=== PATIENT | male | born 1965 | race Caucasian/White ===

== ENCOUNTER 2016-09-04 23:22 | Inpatient (IN) | payer OTHER ==
[~2016-09-04] VITALS: Ht 180.3 cm; Wt 108.0 kg
--- NOTE | ~2016-09-04 | EKG ---
[place] [address] [facility] [place] [address] ELECTROCARDIOGRAM REPORT Name: MILLIE MACIEL Room #: 206-P ADM IN M.R.#: [id number] Admission: 09/05/16 Attend Phys: Demi Sandy Discharge: Date of : 65 Report #: [id number] THIS REPORT FOR: //name// [facility] ED Test Date: 2016-09-05 Test Time: 00:16:21 Pat Name: MILLIE MACIEL Department: Room: 206 Gender: M Diploma Dental Assistant: AJIT : 1965 Requested By: Andrew Will Order Number: [id number] MD: Harrison Babb Measurements Intervals [place] Rate: 94 P: 67 [place]: 165 QRS: 7 QRSD: 109 T: 154 QT: 423 QTc: 530 Interpretive Statements Sinus rhythm Left atrial enlargement LVH with secondary repolarization abnormality Anterior ST elevation, probably due to LVH No previous ECG available for comparison Electronically Signed On 09-05-2016 8:02:30 CDT by Harrison Babb [email or web address] <ELECTRONICALLY SIGNED> By: Harrison Babb MD, [facility] 09/05/16 0802 Harrison Babb MD, [facility] /EPI
--- NOTE | ~2016-09-04 | H ---
[place] [address] HISTORY AND PHYSICAL Name: MILLIE MACIEL Room #: 206-P [facility] IN M.R.#: [id number] Admission: 09/05/16 Attend Phys: Demi Sandy Discharge: 09/07/16 Date of : 65 Report #: [id number] THIS REPORT FOR: //name// CC: ARPIT Sandy DATE OF SERVICE: 09/05/2016 ATTENDING PHYSICIAN: Dr. Jamshid Pulido. PRIMARY CARE PHYSICIAN: Dr. Arpit Nguyen. CHIEF COMPLAINT: Shortness of air and lower extremity edema. HISTORY OF PRESENT ILLNESS: The patient is a 51-year-old male who came in to our ER tonight with the above complaints. Apparently, he is a dialysis patient and he has been noncompliant with dialysis since he started dialysis last October 2015. He has multiple reasons why he has been missing dialysis. It sounds like, he has been to multiple dialysis centers when he was first set up. He said he was at [facility], but that he left because the dialysis there was making his blood pressure too high. He has also been getting dialysis at [facility]. It sounds like, he really does not have a current place to receive dialysis and so he does go into different ERs when he feels that he needs dialysis. He says he received dialysis about 6 or 7 times in August. His last dialysis was 1 week ago at [place]. He still has his temporary dialysis catheter in, which was placed in July 2015. He does have left arm fistula, which he says they used once and it worked well, but then the last time he thought they had some problems. The patient really does not seem to understand the concept of dialysis. He does have a history of hypertension and he has been off his medications again for a year. He says the only medication that was ever able to help his high blood pressure was his Xanax, which is really the only medication he continues to take. He does have chronic pain mostly in his back for which he has multiple allergies and says the only thing that helps his back pain is fentanyl and Dilaudid. He actually just saw a pain management doctor today and was given hydrocodone. When asked why he was given hydrocodone if he is allergic to it, he says, he is not really allergic to it; it just does not work for him anymore. The patient was actually found in the room with a bottle of his hydrocodone trying to take a pill of his own med. He is falling asleep sitting at the side of his bed, but he is being noncompliant with lying down and using his sher alarm. The patient is denying any chest pain. His main concern is that he has been having increasing swelling in his legs, which he says is chronic. PAST MEDICAL HISTORY: End-stage renal disease, hypertension, panic disorder, chronic back pain and diabetes, which he says is diet controlled. 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 ALLERGIES: The patient said he is allergic to TYLENOL, HYDROCODONE, OXYCODONE and TRAMADOL, all of which he says are not really allergies, they just do not work for him. He is allergic to PENICILLIN with unknown reaction. HOME MEDICATIONS: DuoNeb q.i.d., Flomax 0.4 mg daily, Flexeril 10 mg p.o. t.i.d. p.r.n., amlodipine 10 mg p.o. daily, but he really has not taken this in about a year, Xanax 1 mg p.o. t.i.d. p.r.n., Zofran p.r.n., Proscar 5 mg p.o. daily. SOCIAL HISTORY: The patient lives with 2 roommates. He is on disability. Denies any alcohol or drug use. He does smoke 1 pack of cigarettes per day, has been smoking since the age of 30. REVIEW OF SYSTEMS: Both his parents are . His mother of colon cancer and his father of renal cancer. His sister is alive and healthy. REVIEW OF SYSTEMS: Twelve point review of systems was reviewed with the patient, otherwise negative unless stated in the HPI. PHYSICAL EXAMINATION: GENERAL: The patient is an alert disheveled appearing male, in no acute distress. VITAL SIGNS: Temperature is 36.7, heart rate 92, respirations 20, blood pressure is 224/108, and oxygen is 95% on room air. HEENT: PERRLA. Sclerae is nonicteric. Oral mucosa is pink and moist. NECK: Supple, no JVD noted. CARDIOVASCULAR: Normal S1, S2. No murmurs, rubs or gallops. RESPIRATORY: Breath sounds are clear bilaterally. No wheezing or rhonchi. Breathing is nonlabored. ABDOMEN: Soft, nontender, nondistended with positive bowel sounds. VASCULAR: He does have 3+ bilateral lower extremity edema. Pedal pulses are 2+. NEUROLOGIC: The patient is alert and oriented x 3, but overall, he is an extremely poor historian with probable low IQ. He will follow commands and is moving all extremities equally. No focal neuro deficits noted. LABORATORY DATA AND DIAGNOSTICS: WBC is 7.7, hemoglobin 9.9, platelets 173. Sodium 137, potassium 3.4, BUN 74, creatinine 5.7, glucose 130, phosphorus is 6.0. LFTs are within normal limits except for magnesium 2.4. Chest x-ray shows right IJ dialysis catheter in place with generalized cardiomegaly with moderate to right-sided pleural effusion and a right middle and lower lobe atelectasis and pneumonia. There is diffuse vascular congestion and pulmonary edema was [address] [place] [address] HISTORY AND PHYSICAL Name: MILLIE MACIEL [place] Room #: 206-P [facility] IN ..#: [id number] Admission: 09/05/16 Attend Phys: Demi Sandy Discharge: 09/07/16 Date of : 65 Report #: [id number]. ASSESSMENT AND PLAN: 1. Hypertensive urgency: Likely, due to noncompliance with hemodialysis. We will add hydralazine p.r.n. and consult renal due to the need for dialysis for fluid removal. 2. End-stage renal disease, on hemodialysis: The patient has been noncompliant with hemodialysis. He truly needs to get re-established with a specific dialysis center and reserve a new chair time and then keep going to the same clinic instead of jumping around among multiple hospitals and clinics. We will consult renal and case management. 3. Panic disorder and anxiety: Xanax is added p.r.n. 4. Chronic back pain: The patient does request pain medication if possible, although he did report multiple drug allergies. We will hold off on any further pain medication at this time. 5. Possible diabetes: The patient states this is diet controlled. We will add sliding scale insulin and check blood sugars before meals and at bedtime. 6. Anemia: This is likely anemia of chronic disease, no signs of bleeding. 7. Deep venous thrombosis prophylaxis, place sequential compression devices. We will continue to follow the patient closely throughout the hospitalization and make changes based on clinical status. <ELECTRONICALLY SIGNED> By: LAURA Chatman 09/10/16 0604 0525 0815 LAURA Chatman /nt
--- NOTE | ~2016-09-04 | HC ---
[facility] [place] [address] CONSULTATION Name: MILLIE MACIEL Room #: 206-P ADM IN M.R.#: [id number] Admission: 09/05/16 Attend Phys: Demi Sandy Discharge: Date of : 65 Report #: [id number] THIS REPORT FOR: //name// CC: ARPIT Sandy DATE OF SERVICE: 09/05/2016 ATTENDING PHYSICIAN: Dr. Pulido. REASON FOR CONSULTATION: Chronic kidney disease. HISTORY OF PRESENT ILLNESS: This poorly compliant 51-year-old patient is a poor historian as well. He is rather somnolent and I believe that is likely due to some narcotics that he likely has received here at the hospital. I aroused him intermittently and gave me some history. He did get some fentanyl and some sedatives in the emergency room. The patient is a poorly compliant dialysis patient who is very slightly short-winded and really not gave me a good reason for his admission. I believe he came to the emergency room when he thought he needed dialysis. He has not dialyzed in at least several weeks and is unclear where his regular dialysis unit is, although may be in [place]. He does live in [place]. Apparently, he has been denied for dialysis status at that clinic. PAST MEDICAL HISTORY: He has end-stage renal disease. He apparently has diabetes, but not severe and he has had some difficult hypertension. He is a chronic pain patient and he apparently had a remote accident some sort and has chronic neck and back pain by his account. FAMILY HISTORY: Negative for renal disease. SOCIAL HISTORY: Denies alcohol or drugs. Apparently, he does smoke cigarettes. ALLERGIES: Reportedly to VICODIN, PERCOCET, PENICILLIN AND TRAMADOL. REVIEW OF SYSTEMS: GENERAL: Difficult to keep the patient awake. EYES: He says his vision is good. ENT: Hearing okay. Swallowing okay. Denies mouth ulcers. ENDOCRINE: He has got the diabetes. RESPIRATORY: Denies shortness of breath. CARDIAC: Denies chest pain, angina, history of arrhythmias, does have hypertension. GASTROINTESTINAL: Denies nausea, vomiting, diarrhea or bloody stools. GENITOURINARY: He says he has got a reasonably good urinary stream. [facility] [address] [place] [address] CONSULTATION Name: MILLIE MACIEL Room #: 206-P [facility] IN .R.#: [id number] Admission: 09/05/16 Attend Phys: Demi Sandy Discharge: Date of : 65 Report #: [id number] NEUROLOGIC: Denies seizure, syncope or stroke. PHYSICAL EXAMINATION: GENERAL: Somewhat swollen, somnolent patient difficult to arouse. SKIN: Unremarkable. SKELETAL: Well developed, well nourished. HEENT: Extraocular movements are full. No scleral icterus. Hearing and vision intact. Mucous membranes are moist. NECK: Supple. There is a tunneled dialysis catheter in his right chest. CHEST: Shows diminished breath sounds at the bases. HEART: Regular. ABDOMEN: Soft and nontender. EXTREMITIES: Show generalized 2+ edema. NEUROLOGIC: Grossly intact. LABORATORY DATA: Creatinine 5.7, BUN 74, potassium 3.4, phosphorus is 6, calcium 7.3, albumin 3. ASSESSMENT AND PLAN: 1. Chronic kidney disease stage 5. Apparently, he has been intermittently on dialysis. He is getting by fairly well without, although he is rather fluid overload and hypertensive, dialysis will be ordered with ultrafiltration. We will start with gentle treatment today and tomorrow, reinitiate antihypertensives and try to sort through his social issues. 2. Chronic pain syndrome. 3. History of diabetes. <ELECTRONICALLY SIGNED> By: Haris French MD 09/06/16 1115 0811 58 Haris French MD /nt
[~2016-09-04 23:22] MED LIST: ADVAIR 250-501 EACH INH; BACTRIM DS TAB1 EACH PO; BUSPIRONE HCL10 MG PO; CARDIZEM60 MG PO; CLONIDINE HCL0.3 M3 PO; DUONEB 2.5-0.5 M3 ML INH; GLUCOPHAGE XR750 MG PO; HYDRALAZINE 2525 MG PO; HYDROCODON-ACE1 EAC8 PO; HYDROCODONE-APA1 TA1 PO; LABETALOL 100100 MG PO; LISINOPRIL20 MG PO; NITROFURANTOIN100 MG PO; NOHOMEMEDICATIONS; PERCOCET PO; PHENERGAN 25 MG25 M1 PO; XANAX 0.5 MG0.5 MG PO; XANAX1 MG PO; ZOFRAN ODT4 MG PO
[2016-09-04 23:46] VITALS: BP 224/128
[2016-09-05] VITALS (9 sets, daily range): BP systolic 179–240; BP diastolic 96–135
[2016-09-05 00:13] LABS: ABSOLUTE NEUTROPHILS 5.4 thou/uL (1.4-8.2); BASOPHILS 1.1 % (0.0-2.0); EOSINOPHILS 2.7 % (0.0-3.0); HEMATOCRIT 28.4 % (42.0-52.0); HEMOGLOBIN 9.9 gm/dL (14.0-18.0); LYMPHOCYTES 12.3 % (24.0-44.0); MCH 29.1 pg (26.0-34.0); MCHC 34.9 g/dL (28.0-37.0); MCV 83.3 fL (80.0-100.0); MONOCYTES 7.1 % (1.0-8.0); PLATELET COUNT 173 thou/uL (150-400); POLYS 76.8 % (36.0-66.0); RBC 3.41 mil/uL (4.50-6.00); WBC 7.1 thou/uL (4.0-11.0)
[2016-09-05 00:18] LABS: MANUAL DIFF NO
[2016-09-05 00:27] LABS: CALCIUM 7.3 mg/dL (8.5-10.1); CREATININE 5.7 mg/dL (0.7-1.3); POTASSIUM 3.4 mmol/L (3.5-5.1)
[2016-09-05 00:31] LABS: MAGNESIUM 2.4 mg/dL (1.8-2.4); TOTAL BILIRUBIN 0.3 mg/dL (<0.1-1.0); TOTAL PROTEIN 6.4 g/dL (6.4-8.2)
[2016-09-05] MEDS ORDERED: FLEXERIL PO (01:00)
[2016-09-05] MEDS ORDERED: FINASTERIDE5 MG PO (01:00)
[2016-09-05] MEDS ORDERED: FLOMAX0.4 MG PO (01:00)
[2016-09-05] MEDS ORDERED: AMLODIPINE BESY10 MG PO (01:00)
[2016-09-06] VITALS (11 sets, daily range): BP systolic 159–217; BP diastolic 85–109
[2016-09-06 04:18] LABS: HEMATOCRIT 25.5 % (42.0-52.0); HEMOGLOBIN 8.7 gm/dL (14.0-18.0); MCH 28.1 pg (26.0-34.0); MCV 82.5 fL (80.0-100.0); RBC 3.09 mil/uL (4.50-6.00); RDW 15.1 % (10.5-14.5); WBC 6.1 thou/uL (4.0-11.0)
[2016-09-06 04:22] LABS: ALBUMIN 2.6 g/dL (3.4-5.0); CALCIUM 7.4 mg/dL (8.5-10.1); PHOSPHORUS 5.3 mg/dL (2.5-4.9); POTASSIUM 3.4 mmol/L (3.5-5.1)
[2016-09-06 04:24] LABS: CREATININE 4.3 mg/dL (0.7-1.3)
[2016-09-06 12:22] LABS: HEMATOCRIT 27.5 % (42.0-52.0); HEMOGLOBIN 9.5 gm/dL (14.0-18.0)
[2016-09-07] VITALS (7 sets, daily range): BP systolic 153–216; BP diastolic 92–110
[2016-09-07 03:53] LABS: ALBUMIN 3.1 g/dL (3.4-5.0); CALCIUM 7.9 mg/dL (8.5-10.1); CREATININE 4.7 mg/dL (0.7-1.3); PHOSPHORUS 5.6 mg/dL (2.5-4.9); POTASSIUM 3.8 mmol/L (3.5-5.1)
[2016-09-07 04:08] LABS: HEP B SURFACE Ab(ANTI-HBS Non Reactive (())
[2016-09-07] MEDS ORDERED: CATAPRES0.1 MG PO (08:35)
[2016-09-07] MEDS ORDERED: AMLODIPINE BESY10 MG PO (08:35)
[2016-09-07] MEDS ORDERED: FLOMAX0.4 MG PO (08:35)
[2016-09-07] MEDS ORDERED: FLEXERIL PO (08:35)
[2016-09-07] MEDS ORDERED: ATENOLOL 25 MG25 M1 PO (08:35)
[2016-09-07] MEDS ORDERED: XANAX1 MG PO (08:36)
[2016-09-07] MEDS ORDERED: FINASTERIDE5 MG PO (08:36)
[2016-09-07] MEDS ORDERED: LASIX 40 MG TAB40 M1 PO (08:36)
[2016-09-07] MEDS ORDERED: OXYCODONE HCL 55 MG PO (08:36)
== END 2016-09-07 20:00 | disposition home or self-care (01) | DRG 304 ==
LOC: ER 23:22 → EROBS 09-05 01:20 → 2N 09-05 01:20
PROVIDERS: Emergency Medicine; Internal Medicine Nephrology; Nurse Practitioner Acute Care
PROC: 5A1D60Z (ICD-10-PCS; principal; 2016-09-05)
DX: I16.1 Hypertensive emergency (principal); N18.6 End stage renal disease; I12.0 Hypertensive chronic kidney disease with stage 5 chronic kidney disease or end stage renal disease; F17.210 Nicotine dependence, cigarettes, uncomplicated; D64.9 Anemia, unspecified; M54.9 Dorsalgia, unspecified; F41.0 Panic disorder [episodic paroxysmal anxiety]; G89.4 Chronic pain syndrome; D63.1 Anemia in chronic kidney disease; F41.9 Anxiety disorder, unspecified; E11.22 Type 2 diabetes mellitus with diabetic chronic kidney disease; Z88.6 Allergy status to analgesic agent; Z88.0 Allergy status to penicillin; Z90.49 Acquired absence of other specified parts of digestive tract; Z99.2 Dependence on renal dialysis; Z79.899 Other long term (current) drug therapy; Z82.49 Family history of ischemic heart disease and other diseases of the circulatory system; Z91.15 Patient's noncompliance with renal dialysis; Z91.14 Patient's other noncompliance with medication regimen
CPT/HCPCS: 10081; 32100

== ENCOUNTER 2016-09-09 20:54 | Inpatient (IN) | payer OTHER ==
[~2016-09-09] VITALS: Ht 348 cm; Wt 107.7 kg
--- NOTE | ~2016-09-09 | EKG ---
[address] [place] [address] ELECTROCARDIOGRAM REPORT Name: MILLIE MACIEL Room #: 170-4 ADM IN M.R.#: [id number] Admission: 09/09/16 Attend Phys: Demi Sandy Discharge: Date of : 65 Report #: [id number] THIS REPORT FOR: //name// [facility] ED Test Date: 2016-09-09 Test Time: 22:12:20 Pat Name: MILLIE MACIEL Department: Room: 170 Gender: M Cutting And Printing Machine Operator: DENTON : 1965 Requested By: Mónica Tran Order Number: [id number] MD: Mckay Quinteros Measurements Intervals [place] Rate: 95 P: 67 KS: 166 QRS: 13 QRSD: 109 T: 136 QT: 408 QTc: 513 Interpretive Statements Sinus rhythm Left atrial enlargement LVH with secondary repolarization abnormality Anterior ST elevation, probably due to LVH Prolonged QT interval Baseline wander in lead(s) V2 Compared to ECG 09/05/2016 00:16:21 Prolonged QT interval now present ST (T wave) deviation still present Electronically Signed On 09-09-2016 22:44:52 CDT by Mckay Quinteros [email or web address] <ELECTRONICALLY SIGNED> By: Mckay Quinteros MD 09/09/16 2244 11 11 Mckay Quinteros MD /EPI
--- NOTE | ~2016-09-09 | HC ---
[facility] [place] [address] CONSULTATION Name: MILLIE MACIEL Room #: 463-P [facility] IN M.R.#: [id number] Admission: 09/09/16 Attend Phys: Demi Sandy Discharge: Date of : 65 Report #: [id number] THIS REPORT FOR: //name// CC: ARPIT Sandy DATE OF SERVICE: 09/10/2016 REASON FOR CONSULTATION: Right hip fracture. HISTORY OF PRESENT ILLNESS: The patient is a 51-year-old male who apparently slipped and fell after getting out of the shower, walking down the hallway and reports multiple hours of loss of consciousness until his roommates came home, they then moved him to the kitchen where he slept for the night. He was then brought in to the emergency department and was diagnosed with a hip fracture. The patient's exam was limited secondary to his somnolence. He reports right lower extremity numbness since the fall. He denies any other extremity pain. The patient denies any new onset back pain after this fall. ALLERGIES: INCLUDE PENICILLINS AND TRAMADOL. THE PATIENT DOES NOT REPORT THIS. PAST MEDICAL HISTORY: Significant for renal failure, a lot of this is received from the patient's medical record due to the patient's somnolence, low back pain, headaches, hypertension, apparently noncompliant. 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 SOCIAL HISTORY: He lives with roommates. He smokes. He denies drinking alcohol. He does not use any ambulatory aids. REVIEW OF SYSTEMS: NEUROLOGIC: Reports numbness to the right lower extremity. MUSCULOSKELETAL: Denies any other extremity complaints. PHYSICAL EXAMINATION: GENERAL: He is somnolent. He does converse, but is slow and difficult to converse with. He is oriented. He is a well-developed, well-nourished male in no acute distress. VITAL SIGNS: Show temperature of 36.9, heart rate 89, respiratory rate ____, blood pressure 156/78, pulse oximetry is 95% on room air. EXTREMITIES: Examination of his bilateral upper extremities, his skin is clean, dry and intact. He has brisk capillary refill. Sensation is intact to light touch throughout. He is able to make a full fist, full extension. He has functional wrist, elbow and shoulder motion. There is no pain with range of [facility] [address] [place] [address] CONSULTATION Name: MILLIE MACIEL Room #: 463-P [facility] IN ..#: [id number] Admission: 09/09/16 Attend Phys: Demi Sandy Discharge: Date of : 65 Report #: [id number] motion of any of these joints. There is no tenderness to palpation of the ____ sternum or clavicles, bilateral shoulders, arms, elbows, forearms, wrists and hands. Right lower extremity exam, he has a shortened and externally rotated right lower extremity. He has 2+ dorsalis pedis pulse. EHL, FHL, dorsiflexion and plantar flexion are 5/5. He reports decreased sensation to the entire right side of the leg. He has no knee deformity, but he does complain of diffuse tenderness to palpation. There is significant pain with attempted range of motion of the right hip. Left lower extremity exam: Sensation is intact to light touch throughout. He has brisk capillary refill. EHL, FHL, dorsiflexion, plantar flexion are 5/5. He has 2+ dorsalis pedis pulse. He has no tenderness to palpation to the leg, ankle or foot. He does have diffuse tenderness to the knee. There is no knee effusion or deformity. There is mild pain with knee range of motion. No pain with hip range of motion. LABORATORY DATA: Done on 09/09/2016 show white blood cell count 9.1, hemoglobin 9.6, hematocrit 28.3, platelet count 180. INR is 1.2. Chemistry shows an elevated creatinine at 6.4, calcium is low at 7.8. RADIOGRAPHS: AP pelvis, AP and lateral of the right hip show a displaced subcapital femoral neck fracture. IMPRESSION AND PLAN: Right displaced subcapital femoral neck fracture in a poorly compliant patient with new onset reported decreased sensation in the right lower extremity, also with knee pain and a difficult examination. At this point, I would recommend getting a thoracic and lumbar spine films as well as bilateral knee x-rays and awaiting medical clearance. The patient would be best benefitted by a hip hemiarthroplasty. I will discuss with my partners at [facility]. By: 0746 0921 Ofe Joshi MD /asa
--- NOTE | ~2016-09-09 | HC ---
[facility] [place] [address] CONSULTATION Name: MILLIE MACIEL Room #: 310-P [facility] IN M.R.#: [id number] Admission: 09/09/16 Attend Phys: Demi Sandy Discharge: Date of : 65 Report #: [id number] THIS REPORT FOR: //name// CC: ARPIT Sadny The patient is a 51-year-old male, chronic dialysis patient with the onset of right hip pain apparently getting out of the shower. He apparently slipped. He did hit his head, loss of consciousness uncertain, there is question of 4-5 hours. Apparently, his roommates bought him into the kitchen and he slept there. He then was admitted to [facility]. At the time of admission, he was noted to be nonresponsive, but he perked up quickly with some Narcan. He was diagnosed with a right hip femoral neck fracture and underwent right hip hemiarthroplasty 09/11/2016. He is allowed weightbearing as tolerated. We are seeing him in rehabilitation medicine consultation. PAST MEDICAL HISTORY: Includes end-stage renal disease on hemodialysis, hypertension, chronic pain syndrome, on chronic narcotics, noncompliance. MEDICATIONS: Please see the full medication listing. SOCIAL HISTORY: [facility] 2 steps [place], he has 2 roommates. He notes that they are all disabled. The faculty i on call medical assistant did not offer any current complaints of chest pain, shortness of breath, abdominal discomfort. He has some hip pain as expected. PHYSICAL EXAMINATION: GENERAL: A 51-year-old white male currently undergoing dialysis. VITAL SIGNS: Last recorded temperature 98.8, pulse 76, respirations 16, blood pressure 142/73. NEUROLOGIC: He is alert. He follows basic 1 step commands. Facies are symmetric. He was able to give me a reasonable history. EXTREMITIES: He has functional range of motion of both upper extremities. Strength is a grade 4+/5, right upper extremity. I did not check his left upper extremity much as he is currently getting dialyzed through the left arm. Right hip is dressed, he could dorsiflex the right ankle and waggle his toes. I did not test him proximally. Left lower extremity appeared to be strong. There is no focal calf swelling. ASSESSMENT: A 51-year-old white male with the following problem list: 1. Right hip femoral neck fracture status post right hip hemiarthroplasty 09/11/2016, weightbearing as tolerated. 2. End-stage renal disease, on hemodialysis. 3. Chronic pain disorder. 4. Chronic narcotic usage. 5. Hypertension. [address] [address] CONSULTATION Name: MILLIE MACIEL Room #: 310-P [facility] IN ..#: [id number] Admission: 09/09/16 Attend Phys: Demi Sandy Discharge: Date of : 65 Report #: [id number] 6. History of noncompliance. 7. History of tobacco abuse. 8. History of sarcoma, left leg removed 1998. PLAN: PT and OT evaluations are underway. Insurance will need to be checked regarding an acute in-hospital inpatient rehabilitation stay. We will be glad to follow along with you. <ELECTRONICALLY SIGNED> By: Gage Choi MD 09/12/16 1534 1150 1249 Gage Choi MD /nt
--- NOTE | ~2016-09-09 | HC ---
[facility] [place] [address] CONSULTATION Name: MILLIE MACIEL Room #: 463-P ADM IN M.R.#: [id number] Admission: 09/09/16 Attend Phys: Demi Sandy Discharge: Date of : 65 Report #: [id number] THIS REPORT FOR: //name// CC: ARPIT Sandy DATE OF SERVICE: 09/10/2016 NEPHROLOGY CONSULTATION REASON FOR CONSULTATION: End-stage renal disease. HISTORY OF PRESENT ILLNESS: The patient known to us from previous hospitalization here at [facility], is a chronic kidney failure patient who has been on dialysis and intermittently has been unable to find a suitable outpatient dialysis unit that he will go to and will accept him, so he has been dialyzing intermittently at different hospitals around the [facility]. He also has chronic pain and has been very demanding of high doses of frequent opioid narcotics whenever he has been in the hospital and when he has not had ____ to his liking, he signs out of the hospital. He was here with volume overload and hypertension last week, did get quite a bit of narcotics and got some dialysis and his volume and clinical status improved quite a bit. He went home on Saturday I believe and fell and broke his hip and now is admitted back yesterday. PAST MEDICAL HISTORY: Has diabetes, ____ hypertension, chronic pain, narcotic dependence, he has some sort of remote accident apparently. REVIEW OF SYSTEMS: GENERAL: Difficult to take as the patient keeps falling asleep as I am asking him questions, but from last week and from recently, I can say that his vision has been pretty good. ENT: His hearing has been okay. He has not had any trouble with swallowing. ENDOCRINE: He has got diabetes. RESPIRATORY: He does not appear to be short of breath. CARDIAC: There has been no cardiac history. No arrhythmias. GASTROINTESTINAL: ____ nausea, vomiting or diarrhea. GENITOURINARY: Still makes fair amount of urine. NEUROLOGIC: No seizure, syncope or stroke. He does have the somnolence and he does have the pain in his leg after falling and breaking his head. PHYSICAL EXAMINATION: GENERAL: Again, somewhat swollen and somnolent patient. Nasal cannula oxygen in place, difficult to arouse. [facility] [address] [place] [address] CONSULTATION Name: MILLIE MACIEL [place] Room #: 463-[facility] IN M.R.#: [id number] Admission: 09/09/16 Attend Phys: Demi Sandy Discharge: Date of : 65 Report #: [id number] SKIN: Unremarkable. SKELETAL: Well developed, well nourished. HEENT: Extraocular movements cannot be tested. No scleral icterus. Hearing and vision appears to be intact. NECK: Supple. CHEST: Tunneled dialysis catheter in the right chest. Chest shows decreased breath sounds at the bases, shallow respirations. HEART: Regular. ABDOMEN: Soft and nontender. EXTREMITIES: Show 1+ edema. LABORATORY DATA: Hemoglobin 9.6, sodium 136, potassium 3.6, chloride 98, bicarbonate 23, creatinine 6.4, BUN 77. ASSESSMENT AND PLAN: 1. Chronic kidney disease: He has been on dialysis. He has a nice left forearm fistula, which we will use. We will try to get his dialysis catheter out while he is here. 2. Hip fracture, apparently we will need some surgery. 3. Chronic pain with narcotic chronic dependent. 4. History of hypertension. 5. History of diabetes. <ELECTRONICALLY SIGNED> By: Haris French MD 09/11/16 1147 0941 1301 Haris French MD /nt
--- NOTE | ~2016-09-09 | O ---
[facility] [place] [address] OPERATIVE REPORT Name: MILLIE MACIEL Room #: 310-P [facility] IN M.R.#: [id number] Admission: 09/09/16 Attend Phys: Demi Sandy Discharge: Date of : 65 Report #: [id number] THIS REPORT FOR: //name// CC: ARPIT Sandy DATE OF SERVICE: 09/11/2016 PREOPERATIVE DIAGNOSIS: Right hip femoral neck fracture. POSTOPERATIVE DIAGNOSIS: Right hip femoral neck fracture. PROCEDURE: Right hip hemiarthroplasty. SURGEON: Azeem Rodríguez M.D. ANESTHESIA: General. ESTIMATED BLOOD LOSS: 50 mL. SCORE CALLER: JABARI Ulloa, critical for positioning and safe performance of the procedure. COMPLICATIONS: There were no complications. DESCRIPTION OF PROCEDURE: The patient brought to the operating room where he is placed under general anesthesia. Once under adequate general anesthesia, he is placed into a lateral decubitus position on the operative table. A 15-cm incision was made overlying the greater trochanter, was dissected down through the soft tissue to the tensor fascia, which was incised in line with the incision. The piriformis was then identified and a posterior approach to the hip was then achieved with exposure of the fracture site and hematoma was evacuated and the femoral head was then removed. The femoral neck was cut to length and the femoral head was sized as a size 52 mm femoral head. The trial components did work well. The femoral shaft was then reamed and broached to a size 9 femoral stem. Subsequently, the trial components were then placed and a provisional reduction was achieved, this was very stable; therefore, the wound was irrigated copiously. The trial components were removed. The wounds were irrigated copiously once again and the final components were placed, which was a bipolar [employer] hemiarthroplasty with a ____ stem and a 52-mm head. The hip was then very stable. The wound was irrigated copiously. The piriformis was repaired back to the fossa with #5 FiberWire suture. #2 FiberWire was used to repair the joint capsule posteriorly. The wound was irrigated once again copiously and closed with #1 Vicryl in the deep fascia, 2-0 Vicryl in subcutaneous tissues and serina were used for the skin. The wounds [address] [address] OPERATIVE REPORT Name: MILLIE MACIEL Room #: 310-P [facility] IN .R.#: [id number] Admission: 09/09/16 Attend Phys: Demi Sandy Discharge: Date of : 65 Report #: [id number] were dressed with Xeroform, 4 x 4s and sterile soft compressive dressing was placed. There were no complications from the procedure. The patient tolerated the procedure well and went to the recovery room without incident. By: 1101 1135 Azeem Rodríguez MD /nt
[~2016-09-09 20:54] MED LIST changes: +AMLODIPINE BESY10 MG PO; +ATENOLOL 25 MG25 M1 PO; +CATAPRES0.1 MG PO; +FINASTERIDE5 MG PO; +FLEXERIL PO; +FLOMAX0.4 MG PO; +LASIX 40 MG TAB40 M1 PO; +OXYCODONE HCL 55 MG PO
[2016-09-09 20:55] VITALS: BP 189/102
[2016-09-09 22:25] LABS: HEMATOCRIT 28.3 % (42.0-52.0); HEMOGLOBIN 9.6 gm/dL (14.0-18.0); MCH 28.4 pg (26.0-34.0); MCHC 33.9 g/dL (28.0-37.0); MCV 83.8 fL (80.0-100.0); PLATELET COUNT 180 thou/uL (150-400); RBC 3.38 mil/uL (4.50-6.00); RDW 15.2 % (10.5-14.5); WBC 9.1 thou/uL (4.0-11.0)
[2016-09-09 22:31] LABS: CALCIUM 7.8 mg/dL (8.5-10.1); POTASSIUM 3.6 mmol/L (3.5-5.1)
[2016-09-09 22:32] LABS: CREATININE 6.4 mg/dL (0.7-1.3)
[2016-09-09 22:33] LABS: MANUAL DIFF YES
[2016-09-09 22:37] LABS: INR 1.2; PROTIME 12.2 Seconds (9.3-11.4)
[2016-09-09 23:01] VITALS: BP 173/95
[2016-09-09 23:15] VITALS: BP 177/105
[2016-09-09 23:41] LABS: ABSOLUTE NEUTROPHILS 8.2 thou/uL (1.4-8.2); ANISOCYTOSIS SLIGHT; TOTAL CELL COUNT 100
[2016-09-10 01:53] LABS: ABG SAMPLE TYPE ARTERIAL; BE(vivo) -4.8 mmol/L (-2 to +3); HCO3 21.9 mmol/L (22.0-26.0); LACTATE 1.01 mmol/L (0.5-2.0); O2(CT) 13.5 mL/dL (15.0-23.0); O2Hb 93.4 % (92.0-98.0); PO2 85.8 mmHg (80.0-100.0); pH 7.278 (7.360-7.450); sO2 95.3 % (92.0-98.0); tCO2 23.4 mmol/L (24.0-30.0)
[2016-09-10 01:54] LABS: STICK SITE R.RADIAL
[2016-09-10 04:51] VITALS: BP 174/95
[2016-09-10 07:20] VITALS: BP 156/78
[2016-09-10 11:30] VITALS: BP 189/93
[2016-09-10 16:36] LABS: ABG SAMPLE TYPE ARTERIAL; BE(vivo) 4.2 mmol/L (-2 to +3); HCO3 29.3 mmol/L (22.0-26.0); O2Hb 92.5 % (92.0-98.0); PCO2 46.1 mmHg (35.0-45.0); PO2 67.2 mmHg (80.0-100.0); STICK SITE R.RADIAL; pH 7.421 (7.360-7.450); sO2 93.6 % (92.0-98.0); tCO2 30.7 mmol/L (24.0-30.0)
[2016-09-10 17:24] VITALS: BP 197/105
[2016-09-10 20:00] VITALS: BP 193/85
[2016-09-10 22:10] VITALS: BP 182/86
[2016-09-11 05:00] VITALS: BP 198/94
[2016-09-11 06:29] LABS: ALBUMIN 2.7 g/dL (3.4-5.0); CALCIUM 7.1 mg/dL (8.5-10.1); PHOSPHORUS 4.4 mg/dL (2.5-4.9); POTASSIUM 4.1 mmol/L (3.5-5.1)
[2016-09-11 06:35] LABS: CREATININE 5.1 mg/dL (0.7-1.3)
[2016-09-11 08:19] VITALS: BP 197/84
[2016-09-11 16:58] VITALS: BP 185/83
[2016-09-11 19:00] VITALS: BP 148/61
[2016-09-12 03:37] VITALS: BP 142/73
[2016-09-12 05:37] LABS: ALBUMIN 2.5 g/dL (3.4-5.0); CALCIUM 7.7 mg/dL (8.5-10.1); POTASSIUM 4.1 mmol/L (3.5-5.1)
[2016-09-12 12:50] VITALS: BP 163/83
[2016-09-12 13:15] VITALS: BP 163/83
[2016-09-12 16:16] VITALS: BP 134/63
[2016-09-12 19:45] VITALS: BP 151/64
[2016-09-13 03:45] VITALS: BP 137/74
[2016-09-13 06:05] LABS: ALBUMIN 2.7 g/dL (3.4-5.0); PHOSPHORUS 3.9 mg/dL (2.5-4.9); POTASSIUM 4.1 mmol/L (3.5-5.1)
[2016-09-13 06:10] LABS: CREATININE 4.9 mg/dL (0.7-1.3)
[2016-09-13 08:20] VITALS: BP 151/78
[2016-09-13] MEDS ORDERED: CATAPRES0.2 MG PO (16:06)
[2016-09-13] MEDS ORDERED: HYDROCODON-ACE1 EAC7 PO (16:06)
[2016-09-13] MEDS ORDERED: ALPRAZOLAM 0.50.5 M1 PO (16:06)
[2016-09-13 16:07] VITALS: BP 149/81
== END 2016-09-13 17:53 | DRG 469 ==
LOC: ER 20:54 → EROBS 22:17 → 4W 22:17 → 3N 09-11 20:12
PROVIDERS: Emergency Medicine; Internal Medicine Nephrology; Nurse Practitioner Acute Care; Orthopaedic Surgery Foot and Ankle Surgery
PROC: 5A1D60Z (ICD-10-PCS; principal; 2016-09-10)
PROC: 0SRR0JZ Replacement of Right Hip Joint, Femoral Surface with Synthetic Substitute, Open Approach (ICD-10-PCS; 2016-09-11)
PROC: 05PYX3Z Removal of Infusion Device from Upper Vein, External Approach (ICD-10-PCS; 2016-09-11)
DX: S72.011A Unspecified intracapsular fracture of right femur, initial encounter for closed fracture (principal); N18.6 End stage renal disease; F11.20 Opioid dependence, uncomplicated; I12.0 Hypertensive chronic kidney disease with stage 5 chronic kidney disease or end stage renal disease; E11.22 Type 2 diabetes mellitus with diabetic chronic kidney disease; G89.4 Chronic pain syndrome; F17.210 Nicotine dependence, cigarettes, uncomplicated; M54.9 Dorsalgia, unspecified; F41.0 Panic disorder [episodic paroxysmal anxiety]; W01.0XXA Fall on same level from slipping, tripping and stumbling without subsequent striking against object, initial encounter; Y93.89 Activity, other specified; Z88.6 Allergy status to analgesic agent; Z88.0 Allergy status to penicillin; Y99.8 Other external cause status; Z99.2 Dependence on renal dialysis; Z91.15 Patient's noncompliance with renal dialysis; Z91.14 Patient's other noncompliance with medication regimen; Z90.49 Acquired absence of other specified parts of digestive tract; Z79.899 Other long term (current) drug therapy; Y92.091 Bathroom in other non-institutional residence as the place of occurrence of the external cause; Z82.49 Family history of ischemic heart disease and other diseases of the circulatory system; Z79.4 Long term (current) use of insulin
CPT/HCPCS: 10045; 10096; 10795; 32100; 50010; 50101; 50382; 50414; 50455; 50939; 51412; 53000; 55388; 56524; 56525; 56530; 56531; 62110; 62900; 70005

== ENCOUNTER 2016-09-13 17:31 | Inpatient (IN) | payer OTHER ==
[~2016-09-13] VITALS: Ht 152.4 cm; Wt 100.0 kg
--- NOTE | ~2016-09-13 | PLAN ---
[facility] [place] [address] REHAB UNIT PLAN OF CARE Name: MILLIE MACIEL Room #: 511-P ADM IN M.R.#: [id number] Admission: 09/13/16 Attend Phys: Ggae Choi MD Discharge: Date of : 65 Report #: [id number] THIS REPORT FOR: //name// CC: ARPIT Choi DATE OF SERVICE: 09/15/2016 HISTORY OF PRESENT ILLNESS: The patient was seen back in followup. Last recorded temperature 36.8, pulse 68, respirations 16 and blood pressure 156/69. The patient was sleepy. He is using his Lovenox and we are encouraging him as far as the importance of taking it. He has refused some of his therapies yesterday even with maximum encouragement. Please see some of the nursing notes. He has been contact guard with sit to stand and transfers and has ambulated ____ 50 feet with contact guard with the walker, utilizing heavy reliance with his upper extremities. He has been needing min assist with some activities in the OT. Working with him on proper positioning of the hip. He has been limited in his cooperation with the therapies. ASSESSMENT: 1. Right hip femoral neck fracture, status post right hip hemiarthroplasty on 09/11/2016, weightbearing as tolerated. 2. End-stage renal disease, on hemodialysis. 3. Chronic pain disorder. 4. Hypertension. 5. History of noncompliance. 6. History of tobacco abuse. 7. History of sarcoma, left leg, removed in 1998. 8. Initial acute mental status changes which were narcotic induced and improved with Narcan. PLAN: The overall plan of care is based on the preadmission screen, post-admission physician evaluation and information garnered from therapy assessments. 1. Estimated length of stay is probably at least 7-10 days and potentially longer. 2. The medical prognosis is reasonably good. 3. Anticipated interventions include the interdisciplinary acute inpatient rehabilitation program. 4. Anticipated functional outcomes would be for the patient to hopefully become modified independent at a walker level. 5. Discharge destination would be back home with his roommates. 6. Expected therapy by discipline includes PT and OT 1-1/2 hours per day each 5 days a week throughout the duration of the acute inpatient rehabilitation stay. [address] [address] REHAB UNIT PLAN OF CARE Name: MILLIE MACIEL Room #: 511-P [facility] IN ..#: [id number] Admission: 09/13/16 Attend Phys: Gage Choi MD Discharge: Date of : 65 Report #: [id number] The hospitalist service is involved as well and has been monitoring his pain medications. He has been refusing the [place], so Tylenol has been scheduled. By: 0828 [id number] Gage Choi MD /nt
--- NOTE | ~2016-09-13 | D ---
[facility] [place] [address] DISCHARGE SUMMARY Name: MILLIE MACIEL Room #: 511-P [facility] IN M.R.#: [id number] Admission: 09/13/16 Attend Phys: Gage Choi MD Discharge: Date of : 65 Report #: [id number] THIS REPORT FOR: //name// CC: ARPIT Rodríguez MD DISCHARGE ADDENDUM: Please see the discharge document. The patient was admitted to the acute inpatient rehab gutierrez after sustaining a right hip femoral neck fracture, for which he underwent a right-hip hemiarthroplasty 09/11/2016. He is allowed weightbearing as tolerated. He has a history of end-stage renal disease, on hemodialysis; hypertension; chronic pain syndrome and chronic narcotic noncompliance. While on the rehab gutierrez, he did progress functionally to the point of getting up by himself in the room with the walker and has been ambulating safely, not losing his balance. The patient unfortunately was noncompliant as far as participating with therapies, indicating that we were not managing his pain. He has a history of narcotic noncompliance and wanting IV pain medication. This was not given to him. He nevertheless did improve as far as his function to the point where he could transfer and ambulate 80 feet contact guard assistance. He is up, safe without balance deficits. It was felt that he could handle household distances. The patient has also had a history of noncompliance with dialysis, and this has involved both dialysis centers and nephrologists. Rather than discharge against medical advice, we have decided to discharge him properly so that he can be discharged with the equipment he needs including walker as well as having home health care nursing check in on him. The hospitalist has arranged for him to have hydrocodone and alprazolam. Otherwise, please see the regular discharge note. By: 1323 1725 Gage Cohi MD /nt
--- NOTE | ~2016-09-13 | H ---
[facility] [place] [address] HISTORY AND PHYSICAL Name: MILLIE MACIEL Room #: 511-P ADM IN M.R.#: [id number] Admission: 09/13/16 Attend Phys: Gage Choi MD Discharge: Date of : 65 Report #: [id number] THIS REPORT FOR: //name// CC: ARPIT Choi DATE OF SERVICE: 09/13/2016 HISTORY OF PRESENT ILLNESS: The patient is a 51-year-old white male, chronic dialysis patient who slipped coming out of the shower. He apparently did hit his head, loss of consciousness uncertain question of 4-5 hours. He was admitted to [facility]. At the time of admission, he was noted to be nonresponsive, but he perked up quickly with some Narcan. He was diagnosed with a right hip femoral neck fracture and underwent right hip hemiarthroplasty 09/11/2016. He is allowed weightbearing as tolerated. He has been admitted now for acute in-hospital inpatient rehabilitation. PAST MEDICAL HISTORY: Includes end-stage renal disease on hemodialysis, hypertension, chronic pain syndrome, on chronic narcotics noncompliance. MEDICATIONS: Please see the full medication listing. Each was individually reconciled upon admission. List includes [id number] as well as supplements, vitamins, etc. that the patient takes. SOCIAL HISTORY: Lives in a condominium, 2 steps in, he has 2 roommates. He notes that they are all disabled. REVIEW OF SYSTEMS: No current complaints of chest pain, shortness of breath or abdominal discomfort. PHYSICAL EXAMINATION: GENERAL: A 51-year-old white male in no obvious distress. He is not real happy this morning as he wants to be able to get up on his own. Not fully cooperative with the examiner. VITAL SIGNS: His temperature is 98.7, pulse 74, respirations 24, blood pressure is 153/71. He did not demonstrate good eye contact during the examination. HEENT: His facies appeared to be symmetric. CHEST: Sounded clear to auscultation. CARDIAC: Regular rate and rhythm. ABDOMEN: Bowel sounds positive, nontender. EXTREMITIES: He has functional range of motion of both upper extremities with strength grade 4- to 4/5. DTRs are trace to 1. His right hip is dressed. There is no focal calf swelling. He could dorsiflex the right ankle. Strength is probably at least a grade 4/5 distally and left lower extremity appeared to be strong. No focal calf swelling. He has been transferring with contact guard and ambulating 120 feet contact guard with a front-wheeled walker. [address] [address] HISTORY AND PHYSICAL Name: MILLIE MACIEL [place] Room #: 511-P [facility] IN ..#: [id number] Admission: 09/13/16 Attend Phys: Gage Choi MD Discharge: Date of : 65 Report #: [id number] ASSESSMENT: A 51-year-old white male with the following problem list: 1. Right hip femoral neck fracture status post right hip hemiarthroplasty 09/11/2016, weightbearing as tolerated. 2. End-stage renal disease, on hemodialysis. 3. Chronic pain disorder. 4. Chronic narcotic usage. 5. Hypertension. 6. History of noncompliance. 7. History of tobacco abuse. 8. History of sarcoma, left leg removed 1998. PLAN: The patient is admitted for acute in-hospital inpatient rehabilitation. From a postadmission physician evaluation perspective, there are no relevant changes since the preadmission screening. Please see the above review of prior and current medical and functional conditions and comorbidities. He will be involved in the interdisciplinary acute inpatient rehabilitation program with the goal of maximizing his functional independence, so he can hopefully return back to his prior living situation. I have asked the therapist to evaluate to see if he is ready to become modified independent in his room at a walker level. Compliance appears to be an issue with this patient. I encouraged him to try to work with the rehabilitation therapy program to try to maximize his functional independence, so he can safely return back home. Would nevertheless anticipate fairly short length of stay with reasonably good prognosis. The goal would be for him to be modified independent with basic transfers and mobility and ADLs at least at the walker level. <ELECTRONICALLY SIGNED> By: Gage Choi MD 09/18/16 1157 [id number] Gage Choi MD /nt
[~2016-09-13 17:31] MED LIST changes: +ALPRAZOLAM 0.50.5 M1 PO; +CATAPRES0.2 MG PO; +HYDROCODON-ACE1 EAC7 PO
[2016-09-14 03:14] VITALS: BP 153/71
[2016-09-14 15:47] VITALS: BP 146/72
[2016-09-15 04:36] LABS: ABSOLUTE NEUTROPHILS 4.7 thou/uL (1.4-8.2); BASOPHILS 0.5 % (0.0-2.0); EOSINOPHILS 5.6 % (0.0-3.0); HEMATOCRIT 23.1 % (42.0-52.0); HEMOGLOBIN 7.9 gm/dL (14.0-18.0); MCH 28.1 pg (26.0-34.0); MCHC 34.1 g/dL (28.0-37.0); MCV 82.3 fL (80.0-100.0); MONOCYTES 9.8 % (1.0-8.0); PLATELET COUNT 161 thou/uL (150-400); POLYS 74.1 % (36.0-66.0); RBC 2.81 mil/uL (4.50-6.00); RDW 14.9 % (10.5-14.5); WBC 6.3 thou/uL (4.0-11.0)
[2016-09-15 04:52] LABS: MANUAL DIFF NO
[2016-09-15 04:59] LABS: ALBUMIN 2.1 g/dL (3.4-5.0); CALCIUM 7.7 mg/dL (8.5-10.1); POTASSIUM 3.6 mmol/L (3.5-5.1)
[2016-09-15 05:13] LABS: CREATININE 6.9 mg/dL (0.7-1.3)
[2016-09-15 06:14] VITALS: BP 156/69
[2016-09-15 09:21] VITALS: BP 156/80
[2016-09-15 16:38] VITALS: BP 150/70
[2016-09-16 04:29] VITALS: BP 180/76
[2016-09-16 16:24] VITALS: BP 141/77
[2016-09-16 21:00] VITALS: BP 162/76
[2016-09-17 03:01] VITALS: BP 195/82
[2016-09-17 16:00] VITALS: BP 151/72
[2016-09-18 05:22] VITALS: BP 175/90
[2016-09-18 08:00] VITALS: BP 172/85
[2016-09-18 11:00] VITALS: BP 172/85
[2016-09-18] MEDS ORDERED: HYDROCODON-ACE1 EAC7 PO (11:13)
[2016-09-18] MEDS ORDERED: ALPRAZOLAM 0.50.5 M1 PO (11:13)
[2016-09-18 15:08] VITALS: BP 172/85
[2016-09-18 17:30] VITALS: BP 168/74
== END 2016-09-18 20:00 | disposition home health service (06) | DRG 535 ==
PROVIDERS: Nurse Practitioner
PROC: 5A1D60Z (ICD-10-PCS; principal; 2016-09-15)
DX: S72.001A Fracture of unspecified part of neck of right femur, initial encounter for closed fracture (principal); N18.6 End stage renal disease; F11.20 Opioid dependence, uncomplicated; I13.2 Hypertensive heart and chronic kidney disease with heart failure and with stage 5 chronic kidney disease, or end stage renal disease; G89.4 Chronic pain syndrome; Z96.0 Presence of urogenital implants; W18.39XA Other fall on same level, initial encounter; Y93.89 Activity, other specified; Y92.89 Other specified places as the place of occurrence of the external cause; Z91.14 Patient's other noncompliance with medication regimen; Z79.899 Other long term (current) drug therapy; Z88.0 Allergy status to penicillin; Z88.6 Allergy status to analgesic agent; Z90.49 Acquired absence of other specified parts of digestive tract; Z99.2 Dependence on renal dialysis; Y99.8 Other external cause status; I50.9 Heart failure, unspecified
CPT/HCPCS: 10112; 32100

== ENCOUNTER 2016-09-24 17:35 | Inpatient (IN) | payer OTHER ==
[~2016-09-24] VITALS: Ht 180.3 cm; Wt 109.0 kg
[2016-09-24 17:49] VITALS: BP 219/113
[2016-09-24 18:25] LABS: URINE BILIRUBIN NEGATIVE (Negative); URINE BLOOD 2+ (Negative); URINE COLOR YELLOW; URINE GLUCOSE-RANDOM* TRACE (Negative); URINE KETONES NEGATIVE (Negative); URINE NITRITE NEGATIVE (Negative); URINE PROTEIN (DIPSTICK) 2+ (Negative); URINE SPECIFIC GRAVITY 1.015 (1.003-1.035); URINE UROBILINOGEN 0.2 E.U./dl (0.2-1.0)
[2016-09-24 18:26] LABS: HEMATOCRIT 22.9 % (42.0-52.0); HEMOGLOBIN 7.8 gm/dL (14.0-18.0); MCH 27.6 pg (26.0-34.0); MCV 81.2 fL (80.0-100.0); PLATELET COUNT 393 thou/uL (150-400); RBC 2.82 mil/uL (4.50-6.00); RDW 15.7 % (10.5-14.5); WBC 7.8 thou/uL (4.0-11.0)
[2016-09-24 18:28] LABS: MANUAL DIFF YES
[2016-09-24 18:34] LABS: CALCIUM 8.6 mg/dL (8.5-10.1); CREATININE 7.8 mg/dL (0.7-1.3); POTASSIUM 3.7 mmol/L (3.5-5.1)
[2016-09-24 18:39] LABS: BACTERIA 1-9 Few /HPF (None Seen); CASTS None Seen /LPF (None Seen); SQUAMOUS None Seen /LPF (0-3); URINE RBC 3-10 Few /HPF (0-2); URINE WBC >25 Many /HPF (0-5)
[2016-09-24 18:40] LABS: CRYSTALS None Seen /LPF (None Seen)
[2016-09-24 18:46] LABS: ALBUMIN 2.4 g/dL (3.4-5.0); DIRECT BILIRUBIN 0.1 mg/dL (<0.1-0.3); TOTAL BILIRUBIN 0.3 mg/dL (<0.1-1.0); TOTAL PROTEIN 6.1 g/dL (6.4-8.2)
[2016-09-24 18:50] LABS: ABSOLUTE NEUTROPHILS 6.3 thou/uL (1.4-8.2); HYPOCHROMASIA 1+; TOTAL CELL COUNT 100
[2016-09-24 19:25] LABS: ABG COMMENT ROOM AIR; ABG SAMPLE TYPE ARTERIAL; BE(vivo) 0.1 mmol/L (-2 to +3); HCO3 24.6 mmol/L (22.0-26.0); LACTATE 1.59 mmol/L (0.5-2.0); O2(CT) 10.6 mL/dL (15.0-23.0); O2Hb 90.8 % (92.0-98.0); PO2 69.8 mmHg (80.0-100.0); STICK SITE R.RADIAL; pH 7.418 (7.360-7.450); sO2 94.3 % (92.0-98.0); tCO2 25.8 mmol/L (24.0-30.0)
[2016-09-24 20:51] VITALS: BP 221/108
[2016-09-24 22:08] LABS: AMP/METHAMP Negative (Negative); BARBITURATES Negative (Negative); BENZODIAZEPINES POSITIVE (Negative); COCAINE Negative (Negative); METHADONE Negative (Negative); OPIATES POSITIVE (Negative); PCP Negative (Negative); THC Negative (Negative)
[2016-09-24 22:26] VITALS: BP 229/113
[2016-09-24 23:30] VITALS: BP 229/119
[2016-09-25 03:41] VITALS: BP 181/91
[2016-09-25 05:53] LABS: HEMATOCRIT 21.2 % (42.0-52.0); HEMOGLOBIN 7.1 gm/dL (14.0-18.0); MCH 26.9 pg (26.0-34.0); MCHC 33.5 g/dL (28.0-37.0); MCV 80.3 fL (80.0-100.0); RBC 2.64 mil/uL (4.50-6.00); RDW 15.6 % (10.5-14.5); WBC 7.9 thou/uL (4.0-11.0)
[2016-09-25 06:11] LABS: CREATININE 7.4 mg/dL (0.7-1.3); MAGNESIUM 2.2 mg/dL (1.8-2.4); PHOSPHORUS 5.6 mg/dL (2.5-4.9); POTASSIUM 3.7 mmol/L (3.5-5.1)
[2016-09-25 08:33] VITALS: BP 184/94
[2016-09-25 12:13] VITALS: BP 191/97
[2016-09-25 17:21] VITALS: BP 177/93
[2016-09-25 19:00] VITALS: BP 143/60
[2016-09-25 23:10] VITALS: BP 163/67
[2016-09-26 05:57] VITALS: BP 173/72
[2016-09-26 06:36] LABS: MCHC 33.4 g/dL (28.0-37.0); RDW 15.7 % (10.5-14.5)
[2016-09-26 06:38] LABS: HEMATOCRIT 20.1 % (42.0-52.0); MCH 27.1 pg (26.0-34.0); MCV 81.1 fL (80.0-100.0); RBC 2.47 mil/uL (4.50-6.00); WBC 7.2 thou/uL (4.0-11.0)
[2016-09-26 06:41] LABS: HEMOGLOBIN 6.7 gm/dL (14.0-18.0)
[2016-09-26 06:51] LABS: POTASSIUM 3.6 mmol/L (3.5-5.1)
[2016-09-26 06:54] LABS: CREATININE 5.4 mg/dL (0.7-1.3)
[2016-09-26 07:46] VITALS: BP 154/69
[2016-09-26 11:04] VITALS: BP 141/65
[2016-09-27] MEDS ORDERED: CLEOCIN HCL150 MG PO (19:00)
[2016-09-27] MEDS ORDERED: XANAX 0.5 MG0.5 MG PO (19:07)
[2016-09-27] MEDS ORDERED: HYDROCODONE-AP1 EAC6 PO (19:08)
[2016-09-27] MEDS ORDERED: XANAX1 MG PO (19:08)
[2016-09-27] MEDS ORDERED: CLONIDINE HCL0.1 MG PO (19:08)
[2016-09-27] MEDS ORDERED: HYDROCODONE-APA1 TA1 PO (19:09)
[2016-09-27] MEDS ORDERED: OXYCODONE HCL 55 MG PO (19:09)
== END 2016-09-26 13:37 | disposition left against medical advice (07) | DRG 602 ==
LOC: ER 17:35 → EROBS 19:43 → 4W 19:43
PROVIDERS: Hospitalist; Nurse Practitioner; Nurse Practitioner Acute Care
PROC: 5A1D00Z (ICD-10-PCS; principal; 2016-09-25)
DX: L03.115 Cellulitis of right lower limb (principal); N18.6 End stage renal disease; N39.0 Urinary tract infection, site not specified; F13.20 Sedative, hypnotic or anxiolytic dependence, uncomplicated; F11.20 Opioid dependence, uncomplicated; I12.0 Hypertensive chronic kidney disease with stage 5 chronic kidney disease or end stage renal disease; D63.1 Anemia in chronic kidney disease; F17.210 Nicotine dependence, cigarettes, uncomplicated; G89.29 Other chronic pain; F41.0 Panic disorder [episodic paroxysmal anxiety]; M54.9 Dorsalgia, unspecified; I16.0 Hypertensive urgency; Z96.641 Presence of right artificial hip joint; Z53.21 Procedure and treatment not carried out due to patient leaving prior to being seen by health care provider; Z99.2 Dependence on renal dialysis; Z91.15 Patient's noncompliance with renal dialysis; Z79.899 Other long term (current) drug therapy; Z87.81 Personal history of (healed) traumatic fracture; Z91.14 Patient's other noncompliance with medication regimen; Z87.898 Personal history of other specified conditions; Z88.6 Allergy status to analgesic agent; Z88.0 Allergy status to penicillin; Z90.49 Acquired absence of other specified parts of digestive tract; Z82.49 Family history of ischemic heart disease and other diseases of the circulatory system; Z85.831 Personal history of malignant neoplasm of soft tissue
CPT/HCPCS: 10045; 32100

== ENCOUNTER 2016-09-27 18:04 | Emergency (ER) | payer OTHER ==
[~2016-09-27] VITALS: Ht 180.3 cm; Wt 96.6 kg
--- NOTE | ~2016-09-27 | EKG ---
[place] [address] [facility] [place] [address] ELECTROCARDIOGRAM REPORT Name: RAHEEMMILLIE J Room #: [place]#: [id number] Admission: 09/27/16 Attend Phys: Discharge: 09/27/16 Date of : 65 Report #: [id number] THIS REPORT FOR: //name// [facility] ED Test Date: 2016-09-27 Test Time: 18:35:53 Pat Name: MILLIE MACIEL Department: Room: Gender: M Right Of Way Agent: [facility] : 1965 Requested By: Mónica Tran Order Number: [id number] MD: Harrison Babb Measurements Intervals [place] Rate: 83 P: 57 MI: 169 QRS: -2 QRSD: 105 T: 100 QT: 416 QTc: 489 Interpretive Statements Sinus rhythm Probable left atrial enlargement LVH with secondary repolarization abnormality Borderline prolonged QT interval Compared to ECG 09/09/2016 22:12:20 ST (T wave) deviation no longer present Electronically Signed On 09-28-2016 7:59:54 CDT by Harrison Babb [email or web address] <ELECTRONICALLY SIGNED> By: Harrison Babb MD, [facility] 09/28/16 [phone] [id number] Harrison Babb MD, [facility] /EPI
[2016-09-27] MEDS ORDERED: CLEOCIN HCL150 MG PO (19:00)
[2016-09-27 19:03] LABS: HEMATOCRIT 22.6 % (42.0-52.0); HEMOGLOBIN 7.7 gm/dL (14.0-18.0); MCH 27.9 pg (26.0-34.0); MCV 82.1 fL (80.0-100.0); PLATELET COUNT 396 thou/uL (150-400); RBC 2.75 mil/uL (4.50-6.00); RDW 15.8 % (10.5-14.5); WBC 8.4 thou/uL (4.0-11.0)
[2016-09-27 19:06] LABS: MANUAL DIFF YES
[2016-09-27] MEDS ORDERED: XANAX 0.5 MG0.5 MG PO (19:07)
[2016-09-27] MEDS ORDERED: HYDROCODONE-AP1 EAC6 PO (19:08)
[2016-09-27] MEDS ORDERED: CLONIDINE HCL0.1 MG PO (19:08)
[2016-09-27] MEDS ORDERED: XANAX1 MG PO (19:08)
[2016-09-27] MEDS ORDERED: HYDROCODONE-APA1 TA1 PO (19:09)
[2016-09-27] MEDS ORDERED: OXYCODONE HCL 55 MG PO (19:09)
[2016-09-27 19:15] LABS: CALCIUM 8.4 mg/dL (8.5-10.1); CREATININE 6.8 mg/dL (0.7-1.3)
[2016-09-27 19:49] LABS: ABSOLUTE NEUTROPHILS 6.5 thou/uL (1.4-8.2); TOTAL CELL COUNT 100
== END 2016-09-27 20:10 | disposition home or self-care (01) ==
LOC: ER 18:04
PROVIDERS: Emergency Medicine
DX: L03.115 Cellulitis of right lower limb (principal); D64.9 Anemia, unspecified; I12.0 Hypertensive chronic kidney disease with stage 5 chronic kidney disease or end stage renal disease; N18.6 End stage renal disease; F41.0 Panic disorder [episodic paroxysmal anxiety]; F17.210 Nicotine dependence, cigarettes, uncomplicated; Z71.6 Tobacco abuse counseling; Z99.2 Dependence on renal dialysis; Z88.0 Allergy status to penicillin; Z88.8 Allergy status to other drugs, medicaments and biological substances; Z88.5 Allergy status to narcotic agent

== ENCOUNTER 2016-11-06 00:24 | Inpatient (IN) | payer OTHER ==
[~2016-11-06] VITALS: Ht 180.3 cm; Wt 97.2 kg
[2016-11-06] VITALS (9 sets, daily range): BP systolic 160–229; BP diastolic 80–120
[~2016-11-06 00:24] MED LIST changes: +CLEOCIN HCL150 MG PO; +CLONIDINE HCL0.1 MG PO; +HYDROCODONE-AP1 EAC6 PO
[2016-11-06 00:44] LABS: URINE BILIRUBIN NEGATIVE (Negative); URINE BLOOD 2+ (Negative); URINE COLOR YELLOW; URINE GLUCOSE-RANDOM* TRACE (Negative); URINE KETONES NEGATIVE (Negative); URINE LEUKOCYTES-REFLEX TRACE (Negative); URINE PROTEIN (DIPSTICK) 3+ (Negative); URINE SPECIFIC GRAVITY 1.015 (1.003-1.035); URINE UROBILINOGEN 0.2 E.U./dl (0.2-1.0)
[2016-11-06 00:52] LABS: ABSOLUTE NEUTROPHILS 6.8 thou/uL (1.4-8.2); BASOPHILS 1.3 % (0.0-2.0); EOSINOPHILS 5.1 % (0.0-3.0); HEMATOCRIT 27.5 % (42.0-52.0); HEMOGLOBIN 9.1 gm/dL (14.0-18.0); LYMPHOCYTES 12.1 % (24.0-44.0); MCH 26.1 pg (26.0-34.0); MCHC 33.2 g/dL (28.0-37.0); MCV 78.8 fL (80.0-100.0); PLATELET COUNT 229 thou/uL (150-400); POLYS 75.5 % (36.0-66.0); RBC 3.48 mil/uL (4.50-6.00); RDW 16.7 % (10.5-14.5)
[2016-11-06 00:53] LABS: MANUAL DIFF NO
[2016-11-06 00:56] LABS: CALCIUM 8.4 mg/dL (8.5-10.1); CREATININE 8.2 mg/dL (0.7-1.3); POTASSIUM 4.2 mmol/L (3.5-5.1)
[2016-11-06 01:01] LABS: CASTS None Seen /LPF (None Seen); CRYSTALS None Seen /LPF (None Seen); SQUAMOUS None Seen /LPF (0-3); URINE WBC-REFLEX 0-5 Rare /HPF (0-5)
[2016-11-07 03:33] LABS: ALBUMIN 2.8 g/dL (3.4-5.0); CALCIUM 8.2 mg/dL (8.5-10.1); CREATININE 5.4 mg/dL (0.7-1.3); PHOSPHORUS 6.1 mg/dL (2.5-4.9); POTASSIUM 3.5 mmol/L (3.5-5.1)
[2016-11-07 03:40] VITALS: BP 167/84
[2016-11-07] MEDS ORDERED: HYDRALAZINE 2525 MG PO (13:37)
[2016-11-07] MEDS ORDERED: KEFLEX250 MG PO (13:38)
[2016-11-07 14:37] VITALS: BP 167/84
[2016-11-08 00:10] LABS: HEP B SURFACE Ab(ANTI-HBS Non Reactive (())
== END 2016-11-07 16:55 | disposition home or self-care (01) | DRG 682 ==
LOC: ER 00:24 → EROBS 04:02 → 2N 04:02
PROVIDERS: Emergency Medicine; Hospitalist; Nurse Practitioner Family
PROC: 5A1D00Z (ICD-10-PCS; principal; 2016-11-06)
DX: I12.0 Hypertensive chronic kidney disease with stage 5 chronic kidney disease or end stage renal disease (principal); N18.6 End stage renal disease; N39.0 Urinary tract infection, site not specified; I16.0 Hypertensive urgency; R60.0 Localized edema; F17.210 Nicotine dependence, cigarettes, uncomplicated; G89.29 Other chronic pain; M54.9 Dorsalgia, unspecified; F41.0 Panic disorder [episodic paroxysmal anxiety]; Z99.2 Dependence on renal dialysis; Z91.15 Patient's noncompliance with renal dialysis; Z90.49 Acquired absence of other specified parts of digestive tract; Z88.0 Allergy status to penicillin; Z88.1 Allergy status to other antibiotic agents; Z88.6 Allergy status to analgesic agent; Z82.49 Family history of ischemic heart disease and other diseases of the circulatory system
CPT/HCPCS: 10081; 32100

== ENCOUNTER 2017-01-15 19:39 | Inpatient (IN) | payer OTHER ==
[~2017-01-15] VITALS: Ht 180.3 cm; Wt 90.7 kg
--- NOTE | ~2017-01-15 | HC ---
[facility] [place] [address] CONSULTATION Name: MILLIE MACIEL Room #: 204-P [facility] IN ..#: [id number] Admission: 01/15/17 Attend Phys: Singh Banda MD Discharge: 01/17/17 Date of : 65 Report #: [id number] THIS REPORT FOR: //name// CC: Hira Garcia [facility] physician/PCP Janneth Mcintyre REASON FOR CONSULTATION: End-stage renal disease. REASON FOR PRESENTATION: Headache. HISTORY OF PRESENT ILLNESS: Very well known patient to me. He has end-stage renal disease, who actually was fired from so many practices because of his behavior. He is also known to have end-stage liver disease. He presented with numerous complaints, stating that he has missed his dialysis for the last 2 weeks. He is working with his primary care physician to find a dialysis facility for him. I actually saw him back in November for the same issues. He was admitted for further evaluation and management of his ongoing medical issues and I was consulted to manage his end-stage renal disease. PAST MEDICAL HISTORY: 1. Diabetes mellitus. 2. Hypertension. 3. End-stage renal disease attributed to diabetes mellitus and hypertension. 4. Chronic pain syndrome. 5. Sarcoma of the left leg. 6. Status post right hemiarthroplasty. 7. Anemia. 8. Cholecystectomy. 9. AV fistula. 10. Bilateral ureteral stents placement. REVIEW OF SYSTEMS: GENERAL: No fever or chills. CARDIOVASCULAR: Occasional chest pain. PULMONARY: Occasional shortness of breath. GASTROINTESTINAL: Nausea and vomiting. MUSCULOSKELETAL: Numerous complaints. Arthralgia, back pain and leg pain. MEDICATIONS: I am really sure how accurate is this, but listed is: 1. Tamsulosin. 2. Clonidine. 3. Hydralazine. 4. Amlodipine. 5. Alprazolam. FAMILY HISTORY: Significant for diabetes mellitus. [facility] [address] [place] [address] CONSULTATION Name: MILLIE MACIEL Room #: 204-P [facility] IN [facility]#: [id number] Admission: 01/15/17 Attend Phys: Singh Banda MD Discharge: 01/17/17 Date of : 65 Report #: [id number] SOCIAL HISTORY: He denies drug or alcohol abuse. PHYSICAL EXAMINATION: GENERAL: He is alert, oriented. VITAL SIGNS: Temperature 36.4, blood pressure 150/95. HEAD AND NECK: No jugular venous distention. CHEST: Decreased air entry bilaterally with crackles. CARDIOVASCULAR: No rub detected. ABDOMEN: Mild ascites. LOWER EXTREMITIES: Extensive bilateral lower extremity edema. LABORATORY DATA: Laboratory values reviewed. Hemoglobin is 6.5. Labs from today revealed a sodium of 140, potassium of 3.2, BUN of 96 and a creatinine of 6.9 with phosphorus of 6.4. Chest x-ray reviewed, pulmonary edema present. ASSESSMENT, IMPRESSION AND PLAN: 1. End-stage liver disease. End-stage renal disease. 2. Noncompliance. 3. Hypertensive urgency. 4. Diabetes mellitus. 5. Status post right hip arthroplasty. 6. We will arrange for the patient to have his dialysis as usual every Saturday, Saturday and Saturday. His hypertension, pulmonary edema are all due to noncompliance with his medications and with his dialysis. Unfortunately, the patient has burned all the bridges and he does not have a dialysis facility to go to, he is working with his primary care physician on a new place for him to start dialysis. We will continue to manage his dialysis while he is present here in the hospital. <ELECTRONICALLY SIGNED> By: Nilsa Nicolas MD 01/18/17 1508 [id number] 1017 Nilsa Nicolas MD /nt
--- NOTE | ~2017-01-15 | EKG ---
[address] [place] [address] ELECTROCARDIOGRAM REPORT Name: MILLIE MACIEL Room #: 204-P ADM IN M.R.#: [id number] Admission: 01/15/17 Attend Phys: Hira Garcia MD Discharge: Date of : 65 Report #: [id number] THIS REPORT FOR: //name// [facility] ED Test Date: 2017-01-15 Test Time: 21:32:26 Pat Name: MILLIE MACIEL Department: Room: 204 Gender: M [employer]: [place] : 1965 Requested By: Cam Faria Order Number: [id number] MD: Harrison Babb Measurements Intervals [place] Rate: 82 P: 64 [place]: 171 QRS: 7 QRSD: 112 T: 145 QT: 427 QTc: 499 Interpretive Statements Sinus rhythm Ventricular premature complex Left atrial enlargement LVH with secondary repolarization abnormality Borderline prolonged QT interval Compared to ECG 09/27/2016 18:35:53 Ventricular premature complex(es) now present ST and T wave abnormality is more pronounced Electronically Signed On 01-16-2017 8:36:17 CDT by Harrison Babb [email or web address] <ELECTRONICALLY SIGNED> By: Harrison Babb MD, [facility] 01/16/17 0836 31 31 Harrison Babb MD, [facility] /EPI
[~2017-01-15 19:39] MED LIST changes: +KEFLEX250 MG PO
[2017-01-15 19:42] VITALS: BP 245/124
[2017-01-15] MEDS ORDERED: FLOMAX0.4 MG PO (19:51)
[2017-01-15 21:13] LABS: URINE BILIRUBIN NEGATIVE (Negative); URINE BLOOD 1+ (Negative); URINE COLOR YELLOW; URINE GLUCOSE-RANDOM* 1+ (Negative); URINE KETONES NEGATIVE (Negative); URINE LEUKOCYTES-REFLEX NEGATIVE (Negative); URINE PROTEIN (DIPSTICK) 3+ (Negative); URINE SPECIFIC GRAVITY 1.015 (1.003-1.035); URINE UROBILINOGEN 0.2 E.U./dl (0.2-1.0)
[2017-01-15 21:17] LABS: BASOPHILS 1.3 % (0.0-2.0); EOSINOPHILS 3.6 % (0.0-3.0); HEMATOCRIT 21.6 % (42.0-52.0); HEMOGLOBIN 7.7 gm/dL (14.0-18.0); MCH 28.6 pg (26.0-34.0); MCHC 35.5 g/dL (28.0-37.0); MCV 80.7 fL (80.0-100.0); MONOCYTES 6.6 % (1.0-8.0); PLATELET COUNT 211 thou/uL (150-400); POLYS 73.5 % (36.0-66.0); RBC 2.68 mil/uL (4.50-6.00); RDW 17.4 % (10.5-14.5); WBC 5.5 thou/uL (4.0-11.0)
[2017-01-15 21:18] LABS: ANION GAP 11 mmol/L (7-16); BUN 103 mg/dL (7-18); CALCIUM 8.4 mg/dL (8.5-10.1); CHLORIDE 104 mmol/L (98-107); CO2 24 mmol/L (21-32); GLUCOSE 160 mg/dL (74-106); MANUAL DIFF NO; POTASSIUM 3.8 mmol/L (3.5-5.1); SODIUM 139 mmol/L (136-145)
[2017-01-15 21:27] LABS: ALBUMIN 2.9 g/dL (3.4-5.0); ALKALINE PHOSPHATASE 113 U/L (46-116); MAGNESIUM 2.5 mg/dL (1.8-2.4); SGOT 19 U/L (15-37); SGPT 21 U/L (30-65); TOTAL BILIRUBIN 0.3 mg/dL (<0.1-1.0); TOTAL PROTEIN 6.6 g/dL (6.4-8.2); TROPONIN-I < 0.04 ng/mL (<0.04-0.07)
[2017-01-15 21:28] LABS: CASTS None Seen /LPF (None Seen); CRYSTALS None Seen /LPF (None Seen); SQUAMOUS 0-3 Few /LPF (0-3); URINE RBC 0-2 Rare /HPF (0-2); URINE WBC-REFLEX 0-5 Rare /HPF (0-5)
[2017-01-15 21:34] LABS: ABG SAMPLE TYPE VENOUS; BE(vivo) -7.6 mmol/L (-2 to +3); HCO3 16.2 mmol/L (22.0-26.0); LACTATE 1.18 mmol/L (0.5-2.0); O2(CT) 8.4 mL/dL (15.0-23.0); O2Hb VENOUS 80.7 (65.0-85.0); PCO2 VENOUS 26.2 mmHg (41.0-51.0); STICK SITE LINE; sO2 VENOUS 80.4 % (65.0-85.0)
[2017-01-15 21:35] LABS: ABG COMMENT RN DRAW
[2017-01-15 21:35] LABS: INR 1.1
[2017-01-15 23:35] VITALS: BP 202/108
[2017-01-16] VITALS (12 sets, daily range): BP systolic 117–221; BP diastolic 66–120
[2017-01-16 03:14] LABS: HEMOGLOBIN 6.5 gm/dL (14.0-18.0)
[2017-01-16 03:15] LABS: MCH 27.5 pg (26.0-34.0); MCHC 33.9 g/dL (28.0-37.0); MCV 81.1 fL (80.0-100.0); RBC 2.35 mil/uL (4.50-6.00); RDW 17.4 % (10.5-14.5)
[2017-01-16 03:33] LABS: ALBUMIN 2.6 g/dL (3.4-5.0); CALCIUM 8.1 mg/dL (8.5-10.1); CREATININE 6.9 mg/dL (0.7-1.3); PHOSPHORUS 6.4 mg/dL (2.5-4.9); POTASSIUM 3.2 mmol/L (3.5-5.1); TROPONIN-I 0.04 ng/mL (<0.04-0.07)
[2017-01-16] MEDS ORDERED: LASIX 80 MG TAB80 MG PO (03:58)
[2017-01-16] MEDS ORDERED: AMLODIPINE BESY10 MG PO (03:59)
[2017-01-16 04:01] LABS: HEMATOCRIT 19.1 % (42.0-52.0)
[2017-01-16] MEDS ORDERED: HYDRALAZINE 2525 MG PO (05:21)
[2017-01-16] MEDS ORDERED: PROSCAR 5MG TABL5 MG PO (22:34)
[2017-01-17 00:12] VITALS: BP 155/89
[2017-01-17 02:12] LABS: HEP B SURFACE Ab(ANTI-HBS Non Reactive (())
[2017-01-17 04:23] LABS: HEMATOCRIT 21.8 % (42.0-52.0); HEMOGLOBIN 7.5 gm/dL (14.0-18.0); MCH 27.8 pg (26.0-34.0); MCHC 34.3 g/dL (28.0-37.0); MCV 81.1 fL (80.0-100.0); RBC 2.69 mil/uL (4.50-6.00); RDW 16.8 % (10.5-14.5); WBC 4.6 thou/uL (4.0-11.0)
[2017-01-17 04:35] VITALS: BP 165/93
[2017-01-17 04:57] LABS: CALCIUM 8.1 mg/dL (8.5-10.1); POTASSIUM 3.2 mmol/L (3.5-5.1)
[2017-01-17 04:58] LABS: CREATININE 4.1 mg/dL (0.7-1.3)
[2017-01-17 07:28] VITALS: BP 164/99
[2017-01-17 11:16] VITALS: BP 177/100
[2017-01-17] MEDS ORDERED: MORPHINE SULFAT15 M3 PO (12:39)
[2017-01-17 12:58] VITALS: BP 177/100
== END 2017-01-17 16:25 | disposition home or self-care (01) | DRG 291 ==
LOC: ER 19:39 → 2N 21:58 → EROBS 21:58 → 2N 23:36 → ENTRNSPT 01-17 15:26 → EDTRNSPTSTS 01-17 15:31 → 2N 01-17 16:25
PROVIDERS: Emergency Medicine; Hospitalist; Nurse Practitioner Family
PROC: 30233N1 Transfusion of Nonautologous Red Blood Cells into Peripheral Vein, Percutaneous Approach (ICD-10-PCS; principal; 2017-01-16)
PROC: 5A1D00Z (ICD-10-PCS; 2017-01-16)
DX: I13.0 Hypertensive heart and chronic kidney disease with heart failure and stage 1 through stage 4 chronic kidney disease, or unspecified chronic kidney disease (principal); N18.6 End stage renal disease; F41.9 Anxiety disorder, unspecified; F41.0 Panic disorder [episodic paroxysmal anxiety]; F17.210 Nicotine dependence, cigarettes, uncomplicated; M54.9 Dorsalgia, unspecified; D63.8 Anemia in other chronic diseases classified elsewhere; I50.9 Heart failure, unspecified; G89.4 Chronic pain syndrome; E11.22 Type 2 diabetes mellitus with diabetic chronic kidney disease; Z79.899 Other long term (current) drug therapy; Z88.1 Allergy status to other antibiotic agents; Z88.0 Allergy status to penicillin; Z88.6 Allergy status to analgesic agent; Z91.19 Patient's noncompliance with other medical treatment and regimen; Z82.49 Family history of ischemic heart disease and other diseases of the circulatory system; Z90.49 Acquired absence of other specified parts of digestive tract
CPT/HCPCS: 10081; 32100

== ENCOUNTER 2017-01-27 20:19 | Inpatient (IN) | payer OTHER ==
[~2017-01-27] VITALS: Ht 180.3 cm; Wt 91.2 kg
--- NOTE | ~2017-01-27 | HC ---
[facility] [place] [address] CONSULTATION Name: MILLIE MACIEL Room #: 453-P [facility] IN .R.#: [id number] Admission: 01/27/17 Attend Phys: Demi Sandy Discharge: Date of : 65 Report #: [id number] THIS REPORT FOR: //name// CC: [facility] physician/PCP Demi Sandy DATE OF SERVICE: 01/28/2017 REASON FOR CONSULTATION: End-stage renal disease. REASON FOR PRESENTATION: Weakness. Missed dialysis. HISTORY OF PRESENT ILLNESS: This is a 51-year-old with past medical history of end-stage renal disease. He has no dialysis unit. He keeps flying from one dialysis unit to another. He was fired by so many practices. He presented reporting swelling of both lower extremities. He last dialyzed 8 days ago. I was asked to manage his end-stage renal disease. He was admitted for further evaluation of his lower extremity edema as he was found to have cellulitis. PAST MEDICAL HISTORY: 1. End-stage renal disease. 2. Hypertension. 3. Chronic pain issues. 4. Sarcoma of the left leg. 5. Fistula. 6. Noncompliance. 7. Ascites. 8. Pleural effusion. 9. Diabetes mellitus. 10. Repeated hospitalizations for hyperkalemia and anasarca. REORTED MEDICATIONS: 1. Clonidine. 2. Alprazolam. 3. Morphine. 4. Hydralazine. SOCIAL HISTORY: Continues to smoke. No drug or alcohol abuse. FAMILY HISTORY: Significant for heart disease. REVIEW OF SYSTEMS: GENERAL: Significant for weakness. CARDIOVASCULAR: Significant for chest pain and shortness of breath. PULMONARY: No cough or hemoptysis. GASTROINTESTINAL: Occasional nausea and vomiting. [facility] [address] [place] [address] CONSULTATION Name: MILLIE MACIEL Room #: 453-P [facility] IN ..#: [id number] Admission: 01/27/17 Attend Phys: Demi Sandy Discharge: Date of : 65 Report #: [id number] GENITOURINARY: He still makes urine. No frequency, no urgency. PHYSICAL EXAMINATION: GENERAL: He is alert, oriented. VITAL SIGNS: Blood pressure is elevated at 190/92, pulse rate is 76, respiratory rate 23. HEAD AND NECK: No jugular venous distention. CHEST: Decreased air entry bilaterally. CARDIOVASCULAR: No rub detected. ABDOMEN: Soft, nontender with ascites. LOWER EXTREMITIES: Extensive edema with some cellulitic changes. LABORATORY VALUES: Reviewed. White blood cell count 6.9, hemoglobin 7.4. Potassium 3, creatinine 8. Chest x-ray reviewed, showed what seems to be fluid overload. ASSESSMENT, IMPRESSION AND PLAN: 1. End-stage renal disease. 2. Noncompliance. 3. Hypertensive urgency. 4. Chronic edema with venous stasis. 5. Chronic pain issues. 6. We will arrange for the patient to have dialysis with aggressive ultrafiltration today. This should get his blood pressure under control. 7. Potassium will be rectified with the dialysis. 8. We will defer the management of his cellulitic issues to the admitting team. 9. Unfortunate social situation with repeated hospitalizations due to the fact that he was fired from so many dialysis units. 10. We will try to support as much as we can. By: 0944 1250 Nilsa Nicolas MD /nt
[~2017-01-27 20:19] MED LIST changes: +LASIX 80 MG TAB80 MG PO; +MORPHINE SULFAT15 M3 PO; +PROSCAR 5MG TABL5 MG PO
[2017-01-27 20:21] VITALS: BP 191/85
[2017-01-27 21:50] LABS: ABSOLUTE NEUTROPHILS 5.6 thou/uL (1.4-8.2); BASOPHILS 0.8 % (0.0-2.0); EOSINOPHILS 3.9 % (0.0-3.0); HEMATOCRIT 22.1 % (42.0-52.0); HEMOGLOBIN 7.4 gm/dL (14.0-18.0); LYMPHOCYTES 7.8 % (24.0-44.0); MCH 28.1 pg (26.0-34.0); MCHC 33.6 g/dL (28.0-37.0); MCV 83.7 fL (80.0-100.0); MONOCYTES 6.6 % (1.0-8.0); PLATELET COUNT 214 thou/uL (150-400); POLYS 80.9 % (36.0-66.0); RBC 2.64 mil/uL (4.50-6.00); WBC 6.9 thou/uL (4.0-11.0)
[2017-01-27 21:54] LABS: CALCIUM 8.1 mg/dL (8.5-10.1); POTASSIUM 3.6 mmol/L (3.5-5.1)
[2017-01-27 21:55] LABS: MANUAL DIFF NO
[2017-01-27 21:57] LABS: INR 1.1; PROTIME 11.3 Seconds (9.3-11.4)
[2017-01-27 22:02] LABS: ALBUMIN 2.6 g/dL (3.4-5.0); MAGNESIUM 2.3 mg/dL (1.8-2.4); TOTAL BILIRUBIN 0.3 mg/dL (<0.1-1.0); TROPONIN-I 0.05 ng/mL (<0.04-0.07)
[2017-01-27 23:12] LABS: URINE BILIRUBIN NEGATIVE (Negative); URINE BLOOD 2+ (Negative); URINE COLOR YELLOW; URINE GLUCOSE-RANDOM* 1+ (Negative); URINE KETONES NEGATIVE (Negative); URINE NITRITE NEGATIVE (Negative); URINE PROTEIN (DIPSTICK) 2+ (Negative); URINE SPECIFIC GRAVITY 1.015 (1.003-1.035); URINE UROBILINOGEN 0.2 E.U./dl (0.2-1.0)
[2017-01-27 23:20] LABS: AMP/METHAMP Negative (Negative); BARBITURATES Negative (Negative); BENZODIAZEPINES POSITIVE (Negative); COCAINE Negative (Negative); METHADONE Negative (Negative); OPIATES POSITIVE (Negative); PCP Negative (Negative); THC Negative (Negative)
[2017-01-27 23:23] LABS: BACTERIA None Seen /HPF (None Seen); CASTS None Seen /LPF (None Seen); CRYSTALS None Seen /LPF (None Seen); SQUAMOUS None Seen /LPF (0-3); URINE RBC 0-2 Rare /HPF (0-2); URINE WBC 0-5 Rare /HPF (0-5)
[2017-01-27 23:49] VITALS: BP 228/113
[2017-01-28] VITALS (7 sets, daily range): BP systolic 167–229; BP diastolic 83–109
[2017-01-28 06:56] LABS: CALCIUM 7.8 mg/dL (8.5-10.1); MAGNESIUM 2.2 mg/dL (1.8-2.4)
[2017-01-28 17:07] LABS: GLYCOHEMOGLOBIN (HGB A1C) 5.1 % (4.8-5.6)
[2017-01-29 04:06] VITALS: BP 162/74
[2017-01-29 07:22] VITALS: BP 170/80
[2017-01-29 15:12] VITALS: BP 187/91
[2017-01-29 19:38] VITALS: BP 189/86
[2017-01-30 04:05] VITALS: BP 201/85
[2017-01-30 08:19] VITALS: BP 196/106
[2017-01-30] MEDS ORDERED: LABETALOL 100100 MG PO (10:02)
[2017-01-30] MEDS ORDERED: CATAPRES0.2 MG PO (10:02)
[2017-01-30] MEDS ORDERED: FLOMAX0.4 MG PO (10:02)
[2017-01-30] MEDS ORDERED: CLEOCIN HCL150 MG PO (10:03)
[2017-01-30 12:03] VITALS: BP 154/88
[2017-01-30 14:07] VITALS: BP 154/88
== END 2017-01-30 14:30 | disposition home or self-care (01) | DRG 602 ==
LOC: ER 20:19 → EROBS 23:35 → 4W 23:35 → ENTRNSPT 01-30 14:23 → EDTRNSPTSTS 01-30 14:24 → 4W 01-30 14:30
PROVIDERS: Emergency Medicine; Nurse Practitioner Acute Care
DX: L03.115 Cellulitis of right lower limb (principal); N18.6 End stage renal disease; I12.0 Hypertensive chronic kidney disease with stage 5 chronic kidney disease or end stage renal disease; Z96.641 Presence of right artificial hip joint; Z90.49 Acquired absence of other specified parts of digestive tract; E11.22 Type 2 diabetes mellitus with diabetic chronic kidney disease; F17.210 Nicotine dependence, cigarettes, uncomplicated; I87.8 Other specified disorders of veins; I16.0 Hypertensive urgency; D63.8 Anemia in other chronic diseases classified elsewhere; G89.4 Chronic pain syndrome; M54.9 Dorsalgia, unspecified; F41.0 Panic disorder [episodic paroxysmal anxiety]; Z88.0 Allergy status to penicillin; Z88.1 Allergy status to other antibiotic agents; Z88.5 Allergy status to narcotic agent; Z88.8 Allergy status to other drugs, medicaments and biological substances; Z91.14 Patient's other noncompliance with medication regimen; Z82.49 Family history of ischemic heart disease and other diseases of the circulatory system
CPT/HCPCS: 10045; 32100

== ENCOUNTER 2017-02-04 03:11 | Inpatient (IN) | payer OTHER ==
[~2017-02-04] VITALS: Ht 180.3 cm; Wt 93.7 kg
--- NOTE | ~2017-02-04 | HC ---
[facility] [place] [address] CONSULTATION Name: MILLIE MACIEL Room #: 364-P [facility] IN M.R.#: [id number] Admission: 02/04/17 Attend Phys: Jamshid Pulido MD Discharge: Date of : 65 Report #: [id number] THIS REPORT FOR: //name// CC: CHEMO physician/PCP Jamshid Pulido DATE OF SERVICE: 02/04/2017 REASON FOR ADMISSION: End-stage renal disease with cellulitis, leg pain. REASON FOR CONSULTATION: End-stage renal disease. HISTORY OF PRESENT ILLNESS: This is very well known patient to me, he was just discharged from the hospital about a few days ago. He has an end-stage renal disease who does not have a routine regular dialysis unit. He keeps coming in with numerous complaints. He has major issues with his blood pressure related to noncompliance. Unfortunately, he was fired from many dialysis units. He was in the hospital 1 week ago and was treated for hypertensive urgency and cellulitis of the lower extremities. The patient has a very difficult social situation. He did not fill his medications and came back again with the same issues. I am consulted to manage his end-stage renal disease. ALLERGIES: CIPROFLOXACIN, PENICILLIN. PAST MEDICAL HISTORY: 1. End-stage renal disease. 2. Hypertension with noncompliance. 3. Left AV fistula. 4. Panic disorder. 5. Chronic pain. 6. Tobacco abuse. 7. Sarcoma of the left leg. 8. Cholecystectomy. 9. Noncompliance. SOCIAL HISTORY: Heavy smoker. Denies drug or alcohol abuse. FAMILY HISTORY: Significant for heart disease. REVIEW OF SYSTEMS: GENERAL: No fever or chills. CARDIOVASCULAR: No chest pain or palpitation. PULMONARY: No cough or hemoptysis. GASTROINTESTINAL: No nausea or vomiting. MUSCULOSKELETAL: Swelling and redness of the right lower extremities. Chronic pains. [facility] [address] [place] [address] CONSULTATION Name: MILLIE MACIEL Room #: 364-P [facility] IN [facility].#: [id number] Admission: 02/04/17 Attend Phys: Jamshid Pulido MD Discharge: Date of : 65 Report #: [id number] NEUROLOGIC: No weakness. MEDICATIONS: Listed on the patient's medications, which I doubt that he is taking, are the followin. Clindamycin. 2. Clonidine. 3. Labetalol. 4. Alprazolam. PHYSICAL EXAMINATION: GENERAL: He is alert, oriented. VITAL SIGNS: Blood pressure on presentation was 226/118. Pulse 76. Temperature 36.6, blood pressure 168/84. HEAD AND NECK: No jugular venous distention. CHEST: Decreased air entry bilaterally. CARDIOVASCULAR: No rub detected. ABDOMEN: Soft, nontender. LOWER EXTREMITIES: +3 edema. Luis Carlos wraps are applied over the right lower extremity. LABORATORY DATA: Reviewed. Chemistry from today revealed sodium of 135, potassium of 3.6, BUN of 107, creatinine of 7.3. Hemoglobin is 8.1. IMAGING: No chest x-ray. ASSESSMENT, IMPRESSION AND PLAN: 1. End-stage renal disease. 2. Hypertensive urgency. 3. Fluid overload. 4. Noncompliance. 5. Anemia. 6. Questionable cellulitis of the lower extremities. 7. Dialysis will be arranged as usual every Saturday, Saturday and Saturday. 8. Aggressive ultrafiltration. 9. We will defer the management of his cellulitis to the primary team. 10. Blood pressure control. This is a very difficult psychosocial issue and I am not really sure how to solve it. Unfortunately, the patient was fired from so many dialysis units and I would definitely get the case management specialist and the social worker psychiatric involved. <ELECTRONICALLY SIGNED> By: Nilsa Nicolas MD 02/06/17 1000 [id number] Nilsa Nicolas MD /nt
[2017-02-04 03:16] VITALS: BP 215/117
[2017-02-04] MEDS ORDERED: XANAX1 MG PO (03:37)
[2017-02-04 04:24] LABS: HEMATOCRIT 24.2 % (42.0-52.0); HEMOGLOBIN 8.1 gm/dL (14.0-18.0); MCH 27.8 pg (26.0-34.0); MCHC 33.7 g/dL (28.0-37.0); MCV 82.7 fL (80.0-100.0); RBC 2.92 mil/uL (4.50-6.00); RDW 15.6 % (10.5-14.5); WBC 8.3 thou/uL (4.0-11.0)
[2017-02-04 04:34] LABS: CALCIUM 8.4 mg/dL (8.5-10.1); CREATININE 7.3 mg/dL (0.7-1.3); POTASSIUM 3.6 mmol/L (3.5-5.1)
[2017-02-04] MEDS ORDERED: LABETALOL HCL100 MG PO (05:29)
[2017-02-04] MEDS ORDERED: CLEOCIN HCL150 MG PO (05:29)
[2017-02-04 05:56] VITALS: BP 197/100
[2017-02-04 06:33] VITALS: BP 168/84
[2017-02-04 08:00] VITALS: BP 165/92
[2017-02-04 12:54] VITALS: BP 165/86
[2017-02-04 16:23] VITALS: BP 158/38
[2017-02-05] VITALS: BP 178/77
[2017-02-05 04:00] VITALS: BP 184/90
[2017-02-05 05:58] LABS: ABSOLUTE NEUTROPHILS 4.3 thou/uL (1.4-8.2); BASOPHILS 1.7 % (0.0-2.0); EOSINOPHILS 3.8 % (0.0-3.0); HEMATOCRIT 21.8 % (42.0-52.0); HEMOGLOBIN 7.5 gm/dL (14.0-18.0); LYMPHOCYTES 14.2 % (24.0-44.0); MCH 27.8 pg (26.0-34.0); MCHC 34.2 g/dL (28.0-37.0); MCV 81.2 fL (80.0-100.0); MONOCYTES 6.5 % (1.0-8.0); PLATELET COUNT 190 thou/uL (150-400); POLYS 73.8 % (36.0-66.0); RBC 2.68 mil/uL (4.50-6.00); RDW 15.4 % (10.5-14.5); WBC 5.8 thou/uL (4.0-11.0)
[2017-02-05 05:59] LABS: MANUAL DIFF NO
[2017-02-05 06:11] LABS: CALCIUM 8.1 mg/dL (8.5-10.1); POTASSIUM 3.2 mmol/L (3.5-5.1)
[2017-02-05 06:20] LABS: CREATININE 4.5 mg/dL (0.7-1.3)
[2017-02-05 07:49] VITALS: BP 178/97
[2017-02-05 11:46] VITALS: BP 176/85
[2017-02-05 16:55] VITALS: BP 182/80
[2017-02-05 20:30] VITALS: BP 185/91
[2017-02-06 05:30] VITALS: BP 177/84
[2017-02-06 09:00] VITALS: BP 211/105
[2017-02-06] MEDS ORDERED: CATAPRES0.2 MG PO (12:44)
[2017-02-06] MEDS ORDERED: PROTONIX40 M1 PO (12:44)
[2017-02-06] MEDS ORDERED: MIRALAX17 GM PO (12:44)
[2017-02-06] MEDS ORDERED: CLEOCIN HCL150 MG PO (12:44)
[2017-02-06] MEDS ORDERED: ACIDOPHILUS1 EAC4 PO (12:44)
[2017-02-06 17:48] VITALS: BP 210/96
[2017-02-06 21:00] VITALS: BP 180/82
[2017-02-07] VITALS (7 sets, daily range): BP systolic 154–181; BP diastolic 72–89
[2017-02-07] MEDS ORDERED: CATAPRES0.2 MG PO (14:37)
== END 2017-02-07 18:11 | disposition home or self-care (01) | DRG 682 ==
LOC: ER 03:11 → EROBS 05:54 → 3W 06:36 → EROBS 06:36 → 3W 07:29 → ENTRNSPT 02-07 17:54 → 3W 02-07 18:11
PROVIDERS: Emergency Medicine; Nurse Practitioner
PROC: 2W3QX1Z Immobilization of Right Lower Leg using Splint (ICD-10-PCS; principal; 2017-02-04)
PROC: 5A1D70Z Performance of Urinary Filtration, Intermittent, Less than 6 Hours Per Day (ICD-10-PCS; 2017-02-04)
PROC: 5A1D70Z Performance of Urinary Filtration, Intermittent, Less than 6 Hours Per Day (ICD-10-PCS; 2017-02-06)
DX: I12.0 Hypertensive chronic kidney disease with stage 5 chronic kidney disease or end stage renal disease (principal); N18.6 End stage renal disease; L03.115 Cellulitis of right lower limb; Z96.641 Presence of right artificial hip joint; M54.9 Dorsalgia, unspecified; F17.210 Nicotine dependence, cigarettes, uncomplicated; E11.22 Type 2 diabetes mellitus with diabetic chronic kidney disease; I16.0 Hypertensive urgency; E87.70 Fluid overload, unspecified; D63.8 Anemia in other chronic diseases classified elsewhere; F41.9 Anxiety disorder, unspecified; G89.4 Chronic pain syndrome; Z91.14 Patient's other noncompliance with medication regimen; Z90.49 Acquired absence of other specified parts of digestive tract; Z91.15 Patient's noncompliance with renal dialysis; Z99.2 Dependence on renal dialysis; Z88.0 Allergy status to penicillin; Z88.1 Allergy status to other antibiotic agents; Z88.6 Allergy status to analgesic agent; Z88.8 Allergy status to other drugs, medicaments and biological substances; Z71.6 Tobacco abuse counseling; Z82.49 Family history of ischemic heart disease and other diseases of the circulatory system
CPT/HCPCS: 10779; 32100

== ENCOUNTER 2017-02-12 01:04 | Emergency (ER) | payer OTHER ==
[~2017-02-12] VITALS: Ht 180.3 cm; Wt 90.7 kg
--- NOTE | ~2017-02-12 | EKG ---
[place] [address] [facility] [place] [address] ELECTROCARDIOGRAM REPORT Name: MILLIE MACIEL [id number] Admission: 02/12/17 Attend Phys: Discharge: Date of : 65 Report #: [id number] THIS REPORT FOR: //name// [facility] ED Test Date: 2017-02-12 Test Time: 01:15:17 Pat Name: MILLIE MACIEL Department: Room: Gender: M Food Counselor: LAURA : 1965 Requested By: Cam Faria Order Number: [id number] MD: Mckay Quinteros Measurements Intervals [place] Rate: 96 P: 75 MD: 179 QRS: 5 QRSD: 109 T: 147 QT: 399 QTc: 505 Interpretive Statements Sinus rhythm Probable left atrial enlargement LVH with secondary repolarization abnormality Baseline wander in lead(s) V4 Compared to ECG 01/15/2017 21:32:26 Ventricular premature complex(es) no longer present Electronically Signed On 02-12-2017 17:33:52 CDT by Mckay Quinteros [email or web address] <ELECTRONICALLY SIGNED> By: Mckay Quinteros MD 02/12/17 1733 [id number] [id number] Mckay Quinteros MD /EPI
[~2017-02-12 01:04] MED LIST changes: +ACIDOPHILUS1 EAC4 PO; +LABETALOL HCL100 MG PO; +MIRALAX17 GM PO; +PROTONIX40 M1 PO
[2017-02-12 02:22] LABS: CALCIUM 8.7 mg/dL (8.5-10.1); CREATININE 7.6 mg/dL (0.7-1.3); POTASSIUM 3.6 mmol/L (3.5-5.1)
== END 2017-02-12 08:00 | disposition home or self-care (01) ==
LOC: ER 01:04
PROVIDERS: Emergency Medicine
DX: I12.0 Hypertensive chronic kidney disease with stage 5 chronic kidney disease or end stage renal disease (principal); N18.6 End stage renal disease; Z99.2 Dependence on renal dialysis; Z91.15 Patient's noncompliance with renal dialysis; L03.115 Cellulitis of right lower limb; G89.29 Other chronic pain; Z98.890 Other specified postprocedural states; F17.210 Nicotine dependence, cigarettes, uncomplicated; F10.99 Alcohol use, unspecified with unspecified alcohol-induced disorder; Z88.1 Allergy status to other antibiotic agents; Z88.0 Allergy status to penicillin; Z88.5 Allergy status to narcotic agent; Z88.6 Allergy status to analgesic agent